=== PATIENT | female | born 1990 | race Two or more races ===

== ENCOUNTER 2017-03-26 16:52 | Emergency (ER) | payer MEDICAID ==
[~2017-03-26] VITALS: Ht 162.6 cm; Wt 90.9 kg
[2017-03-26] MEDS ORDERED: ACETAMINOPHEN 325 MG TAB PO ONE (18:15)
[2017-03-26] MEDS ORDERED: NS 1,000 ML IV ONE (18:15)
[2017-03-26 18:33] LABS: BASO # 0.1 10^3/uL (0.0-0.2); BASO % 0.5 % (0.0-1.0); EOS # 0.4 10^3/uL (0.0-0.50); EOS % 3.3 % (0.0-3.0); IMMATURE GRANULOCYTE % 0.4 % (0-0); LYMPH # 2.7 10^3/uL (1.5-6.5); LYMPH % 19.6 % (24.0-44.0); MEAN CORPUSCULAR HEMOGLOBIN 31.5 pg (27.0-33.0); MEAN CORPUSCULAR HGB CONC 35.4 g/dl (32.0-36.5); MONO # 0.7 10^3/uL (0.0-0.8); MONO % 5.1 % (0.0-5.0); NEUTROPHILS # 9.6 10^3/uL (1.8-7.7); NEUTROPHILS % 71.1 % (36.0-66.0); PLATELET COUNT, AUTOMATED 196 10^3/uL (150-450); WHITE BLOOD COUNT 13.5 10^3/uL (4.0-10.0)
[2017-03-26 19:01] LABS: ANION GAP 7 MEQ/L (8-16); BLOOD UREA NITROGEN 10 MG/DL (7-18); CALCIUM LEVEL 8.6 MG/DL (8.5-10.1); CARBON DIOXIDE LEVEL 25 MEQ/L (21-32); CHLORIDE LEVEL 110 MEQ/L (98-107); CREATININE FOR GFR 0.86 MG/DL (0.55-1.02); GLOMERULAR FILTRATION RATE > 60.0 (>60); GLUCOSE, FASTING 85 MG/DL (70-105); MAGNESIUM LEVEL 2.2 MG/DL (1.8-2.4); POTASSIUM SERUM 3.9 MEQ/L (3.5-5.1); SODIUM LEVEL 142 MEQ/L (136-145)
--- NOTE | 2017-03-26 19:20 | REPUSA ---
Clinical history: Pain. Findings: Real-time transabdominal and transvaginal ultrasound images of the pelvis were obtained. An anteverted uterus is noted, measuring 9.5 x 5.0 x 6.5 8 cm. The uterus demonstrates normal echotextu re and echogenicity. The endometrial stripe measures 2 mm and is within normal limits. The right ovar y measures 3.0 x 2.5 x 2.0 cm. The left ovary measures 3.4 x 2.8 x 2.7 cm. No adnexal masses are seen . Color Doppler flow is seen within both ovaries. There is no evidence of free fluid. The urinary jimena dder is unremarkable. Impression: Unremarkable ultrasound examination of the pelvis.
[2017-03-26 19:54] LABS: METHADONE URINE NEGATIVE (NEGATIVE)
--- NOTE | 2017-03-26 20:15 | ED PDOC ---
Post-Departure Follow-Up SPOKE WITH PT AT THIS TIME. PT STATES IS STILL HAVING INTERMITTENT "CHEST PRESSURE" SINCE BEING IN EXAM ROOM. ADVISED LABWORK WAS ESSENTIALLY NORMAL AND ADVISED REDRAW OF CARDIAC LABS, SINCE PT IS STILL SYMPTOMATIC. PT STATING SHE DOES NOT WANT TO STAY FOR REPEAT LABS AT THIS TIME. ADVISED IF SHE IS FEELING WORSE AT ANY POINT, SHE NEEDS TO RETURN TO THE ER. PT VOICED UNDERSTANDING AND IS IN AGREEMENT WITH TX PLAN AT THIS TIME. ANGELICA ORELLANA PA-C Mar 26, 2017 20:15
[2017-03-26 20:30] VITALS: BP 99/70
--- NOTE | 2017-03-27 11:42 | REP ---
REASON: Pyrexia and chest pain. COMPARISON: None. FINDINGS: The superior mediastinal structures are midline. The cardiac silhouette is unremarkable in size, shape, and position. The diaphragmatic surfaces of the lungs are regular, and the costophrenic angles are clear. The pulmonary cooper are clear. The imaged osseous structures are intact. IMPRESSION: There is no acute cardiopulmonary disease. Signed by Cal Cook DO 03/27/2017 10:19 A
--- NOTE | 2017-03-27 12:40 | ECGEPIP ---
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
== END 2017-03-26 20:33 | disposition home or self-care (01) ==
LOC: M ED 16:52
DX: R07.89 Other chest pain (principal); R10.9 Unspecified abdominal pain; I25.2 Old myocardial infarction

== ENCOUNTER → 2017-05-07 | Outpatient (REF) | payer MEDICAID, OTHER | LOC: M LAB REF 21:55 | PROVIDERS: ATTEND Physician Assistant | DX: J02.9 Acute pharyngitis, unspecified (principal) ==